=== PATIENT | male | born 1980 | race Caucasian/White ===

== ENCOUNTER 2018-06-26 16:27 | Emergency (ER) | payer BC, OTHER ==
--- NOTE | 2018-06-26 16:44 | EDM.PDOC ---
ED HPI GENERAL MEDICAL PROBLEM - General Chief Complaint: Cardiovascular Problem Stated Complaint: FAST HEART RATE Time Seen by Provider: 06/26/18 16:38 Source of Information: Reports: Patient History Limitations: Reports: No Limitations - History of Present Illness INITIAL COMMENTS - FREE TEXT/NARRATIVE: 38-year-old male presents to the ED with chief complaint of palpitations or fluttering feeling in his chest. Associated mild shortness of breath on exertion and occasional dizziness. Eyes cough or sputum production. His significant other indicates that his lower legs become much more edematous over the last week or so. Patient denies any chest pain. Of note the patient is morbidly obese. Unclear whether he has sleep apnea syndrome. He doesn't think that he has diabetes. He states he's on 2 kinds of blood pressure medicines. He states he's noticed a fluttering feeling in his chest off and on for the last week or more. Onset: Unknown/Unsure (He's felt palpitations off and on for at least a week.) Onset Date: 06/20/18 Duration: Day(s):, Intermittent, Waxing/Waning Location: Reports: Chest (Palpitations.), Other (Increased swelling of both lower extremities) Quality: Reports: Other Severity: Moderate (Fluttering feeling in his chest.) Improves with: Reports: None Worsens with: Reports: None Context: Denies: Activity, Exercise, Lifting, Sick Contact, Trauma, Other Associated Symptoms: Reports: Shortness of Breath. 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 (see below) - Related Data Allergies Allergy/AdvReac Type Severity Reaction Status Date / Time No Known Allergies Allergy Verified 06/26/18 16:36 Home Meds: Home Meds Furosemide [Lasix] 40 mg PO DAILY #30 tablet 06/26/18 [Rx] Meloxicam 15 mg PO DAILY 06/26/18 [History] Metoprolol Succinate 50 mg PO DAILY 06/26/18 [History] Past Medical History Cardiovascular History: Reports: Hypertension Endocrine/Metabolic History: Reports: Obesity/BMI 30+ Social & Family History - Living Situation & Occupation Living situation: Reports: Occupation: Employed ED ROS GENERAL - Review of Systems Review Of Systems: See Below Constitutional: Reports: Malaise, Fatigue. Denies: Fever, Chills HEENT: Reports: No Symptoms Respiratory: Reports: Shortness of Breath Cardiovascular: Reports: Blood Pressure Problem, Edema (Increased edema lower extremities for the last week according to his significant other), Palpitations. Denies: Chest Pain, Claudication, Lightheadedness, Orthopnea ( Chronic hypertension) Endocrine: Reports: Fatigue GI/Abdominal: Denies: Abdominal Pain, Constipation, Diarrhea, Decreased Appetite : Reports: Frequency Musculoskeletal: Reports: Back Pain, Joint Pain (Knees hips) Skin: Reports: No Symptoms Neurological: Reports: No Symptoms Psychiatric: Reports: No Symptoms Hematologic/Lymphatic: Reports: No Symptoms Immunologic: Reports: No Symptoms ED EXAM, GENERAL - Physical Exam Exam: See Below Exam Limited By: No Limitations General Appearance: Alert, WD/WN, No Apparent Distress, Other (Vital signs show BP 136/67 respiratory rate of 24/m pulse ox 100% on room air temperature is 36.8. Under shows sinus rhythm at 87/m) Eye Exam: Bilateral Eye: Other (Patient has strabismus.) Respiratory/Chest: No Accessory Muscle Use, Respiratory Distress, Decreased Breath Sounds (Breath sounds are mildly diminished to both lung bases due to his girth.). No: Rales, Rhonchi, Wheezing Cardiovascular: Regular Rate, Rhythm. No: Normal Peripheral Pulses, No Edema, No Gallop (Occasional ectopic beat), JVD, Bradycardia, Tachycardia, Systolic Murmur Peripheral Pulses: 1+: Posterior Tibial (L) (Pulses are barely palpable in his feet due to edema of the lower extremities), Posterior Tibial (R), Dorsalis Pedis (L), Dorsalis Pedis (R) GI/Abdominal: Normal Bowel Sounds, Soft, Non-Tender, Other (Morbidly obese. Abdominal girth limits ability to palpate any solid organs. Small umbilical hernia which is easily reducible.) Extremities: Pedal Edema, Other Neurological: Alert, Oriented, CN II-XII Intact (No venous stasis ulcers.), Normal Cognition, No Motor/Sensory Deficits Psychiatric: Normal Affect, Normal Mood Skin Exam: Warm, Dry, Intact, Normal Color, No Rash EKG INTERPRETATION EKG Date: 06/26/18 Time: 16:50 Rhythm: NSR Rate (Beats/Min): 85 [place]: LAD-Left [place] Deviation (-12) P-Wave: Present QRS: Other (Decreased voltage precordial leads. Initial poor R-wave progression. Left ventricular hypertrophy pattern there is an incomplete right bundle branch block pattern.) ST-T: Other (Diffuse early repolarization pattern.) QT: Normal EKG Interpretation Comments: Abnormal ECG Course - Vital Signs Last Recorded V/S: Last Vital Signs Temp 36.8 C 06/26/18 16:36 Pulse 89 06/26/18 16:36 Resp 24 H 06/26/18 16:36 BP 136/67 06/26/18 16:36 Pulse Ox 100 06/26/18 16:36 - Orders/Labs/Meds Orders: Active Orders 24 hr Category Date Time Status EKG Documentation Completion [RC] STAT Care 06/26/18 16:39 Active Chest 1V Frontal [CR] Stat Exams 06/26/18 16:39 Taken Labs: Laboratory Tests 06/26/18 06/26/18 06/26/18 Range/Units 17:03 17:03 17:03 WBC 9.50 H (4.23-9.07) K/mm3 RBC 4.63 (4.63-6.08) M/mm3 Hgb 14.0 (13.7-17.5) gm/L Hct 42.9 (40.1-51.0) % MCV 92.7 H (79.0-92.2) fl MCH 30.2 (25.7-32.2) pg MCHC 32.6 (32.2-35.5) g/dl RDW Std Deviation 43.1 (35.1-43.9) fL Plt Count 319 (163-337) K/mm3 MPV 10.2 (9.4-12.3) fl Neutrophils % (Manual) 65 H (40-60) % Band Neutrophils % 0 (0-10) % Lymphocytes % (Manual) 24 (20-40) % Atypical Lymphs % 0 % Monocytes % (Manual) 4 (2-10) % Eosinophils % (Manual) 6 (0.8-7.0) % Basophils % (Manual) 1 (0.2-1.2) Platelet Estimate Adequate Plt Morphology Comment Normal RBC Morph Comment Normal PT 10.8 (9.5-12.1) SECONDS INR 0.99 D-Dimer, Quantitative 0.45 (0.19-0.50) mg/L Sodium 141 (136-145) mEq/L Potassium 3.7 (3.5-5.1) mEq/L Chloride 102 (98-107) mEq/L Carbon Dioxide 31 (21-32) mEq/L Anion Gap 11.7 (5-15) BUN 15 (7-18) mg/dL Creatinine 1.2 (0.7-1.3) mg/dL Est Cr Clr Drug Dosing 84.49 mL/min Estimated GFR (MDRD) > 60 (>60) mL/min BUN/Creatinine Ratio 12.5 L (14-18) Glucose 86 (74-106) mg/dL Hemoglobin A1c (4.50-6.20) % Calcium 9.1 (8.5-10.1) mg/dL Magnesium 1.8 (1.8-2.4) mg/dl Total Bilirubin 0.1 L (0.2-1.0) mg/dL AST 24 (15-37) U/L ALT 35 (16-63) U/L Alkaline Phosphatase 58 (46-116) U/L CK-MB (CK-2) 5.2 H (0-3.6) ng/ml Troponin I < 0.017 (0.00-0.056) ng/mL C-Reactive Protein 1.0 (<1.0) mg/dL NT-Pro-B Natriuret Pep (0-125) pg/mL Total Protein 7.8 (6.4-8.2) g/dl Albumin 3.4 (3.4-5.0) g/dl Globulin 4.4 gm/dL Albumin/Globulin Ratio 0.8 L (1-2) TSH 3rd Generation 0.940 (0.358-3.74) uIU/mL 06/26/18 06/26/18 Range/Units 17:03 17:03 WBC (4.23-9.07) K/mm3 RBC (4.63-6.08) M/mm3 Hgb (13.7-17.5) gm/L Hct (40.1-51.0) % MCV (79.0-92.2) fl MCH (25.7-32.2) pg MCHC (32.2-35.5) g/dl RDW Std Deviation (35.1-43.9) fL Plt Count (163-337) K/mm3 MPV (9.4-12.3) fl Neutrophils % (Manual) (40-60) % Band Neutrophils % (0-10) % Lymphocytes % (Manual) (20-40) % Atypical Lymphs % % Monocytes % (Manual) (2-10) % Eosinophils % (Manual) (0.8-7.0) % Basophils % (Manual) (0.2-1.2) Platelet Estimate Plt Morphology Comment RBC Morph Comment PT (9.5-12.1) SECONDS INR D-Dimer, Quantitative (0.19-0.50) mg/L Sodium (136-145) mEq/L Potassium (3.5-5.1) mEq/L Chloride (98-107) mEq/L Carbon Dioxide (21-32) mEq/L Anion Gap (5-15) BUN (7-18) mg/dL Creatinine (0.7-1.3) mg/dL Est Cr Clr Drug Dosing mL/min Estimated GFR (MDRD) (>60) mL/min BUN/Creatinine Ratio (14-18) Glucose (74-106) mg/dL Hemoglobin A1c 6.00 (4.50-6.20) % Calcium (8.5-10.1) mg/dL Magnesium (1.8-2.4) mg/dl Total Bilirubin (0.2-1.0) mg/dL AST (15-37) U/L ALT (16-63) U/L Alkaline Phosphatase (46-116) U/L CK-MB (CK-2) (0-3.6) ng/ml Troponin I (0.00-0.056) ng/mL C-Reactive Protein (<1.0) mg/dL NT-Pro-B Natriuret Pep 123 (0-125) pg/mL Total Protein (6.4-8.2) g/dl Albumin (3.4-5.0) g/dl Globulin gm/dL Albumin/Globulin Ratio (1-2) TSH 3rd Generation (0.358-3.74) uIU/mL - Radiology Interpretation Free Text/Narrative:: 38-year-old male presents to the ED with a feeling of fluttering in his chest or palpitations. Associated mild shortness of breath and perhaps occasional dizziness. He states he's felt palpitations off and on for the last week. Heart rate in the ED however is in the 80s and it's been sinus rhythm. I thought initially he did have a few ectopic beats but none are visualized at rest. Sats are 100% on room air. Blood pressure is 136/67 using the very large cuff. ECG reveals decreased voltage in the precordial leads. Initial poor R-wave progression. Left ventricular hypertrophy pattern. Left axis deviation of -12. No signs of ischemia and abnormal ECG. Patient may be suffering mild congestive failure. He certainly has venous insufficiency with edema up to his knees bilaterally. He is morbidly obese with a BMI greater than 60. He's never been diagnosed with diabetes. - Re-Assessments/Exams Free Text/Narrative Re-Assessment/Exam: 06/26/18 18:00: Chest x-ray done portably suggests mild to moderate cardiomegaly. Diffuse vascular congestion pattern. However the film does appear to be magnified. 06/26/18 18:19 Labs are back. Total white count is 9.50 with 65% neutrophils and no band cells. Hemoglobin is 14.0 with hematocrit of 42.9. MCV is minimally elevated at 19.7. Bili count 319,000. PT is 10.8 with an INR of 0.99. D-dimer is 0.45 normal.. Sodium 141 with potassium of 3.7. Toward 102 with a bicarbonate of 31. Anion gap is 11.7. BUN is 15 with a creatinine of 1.2. GFR is greater than 60. Glucose is 86. Hemoglobin A1c is 6.00. Calcium is 9.1. Magnesium is 1.8. Liver function is completely normal. CK-MB fraction is 5.2. Slightly elevated troponin I however is less than 0.017. C-reactive protein 1.0. BNP 123. Total protein is 7.8. TSH is elevated at 0.940. Labs of essentially come back normal. He is not showing any signs of arrhythmia since being in the ED. He remains in the mid 80s sinus rhythm with sats of 99% on room air. He has venous insufficiency with marked increased dependent edema. I' m going to change his diuretic to Lasix 40 mg daily and discontinue the hydrochlorothiazide. I will have him be rechecked in the clinic in 2 weeks' time to check on his serum potassium. His potassium may come up after he is off the hydrochlorothiazide or remain about the same on suresh dose of Lasix. Departure - Departure Time of Disposition: 18:29 Disposition: Home, Self-Care 01 Condition: Fair Clinical Impression: Dependent edema, Venous insufficiency of both lower extremities Prescriptions: Furosemide [Lasix] 40 mg PO DAILY #30 tablet Instructions: Edema, [place] Referrals: Mary Montiel NP [Primary Care Provider] - Forms: ED Department Discharge Additional Instructions: Evaluation the emergency room today in regards to increased fluid retention in your lower extremities and feeling of palpitations or fluttering in your chest. You were monitored in the ED for an hour and a half and showed no signs of arrhythmias of your heart. I know flutters or extra beats or skips were identified. Sometimes the diaphragm can flutter and give you a fluttering feeling in your chest. All of the rest of your lab tests proved to be normal including thyroid function and no evidence of diabetes. Electrolytes were all normal including potassium at 3.7. Therefore increased swelling in your lower extremities is due to venous insufficiency which means that the one-way valves and the veins are hitting out secondary to carrying the weight you are. Treatment will be a change in your water medication. You are to stop the hydrochlorothiazide medication. Replace it with Lasix 40 mg once daily every morning. Urine to see Mary Montiel for refills of your medications and your serum potassium should be checked. - My Orders Last 24 Hours: My Active Orders 06/26/18 16:39 EKG Documentation Completion [RC] STAT Chest 1V Frontal [CR] Stat - Assessment/Plan Last 24 Hours: My Active Orders 06/26/18 16:39 EKG Documentation Completion [RC] STAT Chest 1V Frontal [CR] Stat
--- NOTE | 2018-06-27 06:04 | CR ---
Chest: Portable view of the chest was obtained. Comparison: No prior chest x-ray. Heart size and mediastinum are within normal limits for portable technique. Lungs are clear with no acute parenchymal change. Bony structures are grossly intact. Impression: 1. Nothing acute is seen on portable chest x-ray. Diagnostic code #1
== END 2018-06-26 18:45 | disposition home or self-care (01) ==
LOC: JD.ED 16:27
DX: I87.2 Venous insufficiency (chronic) (peripheral) (principal); I10 Essential (primary) hypertension; E66.9 Obesity, unspecified
CPT/HCPCS: 36415; 71045; 71045-26; 80053; 82553; 83036; 83735; 83880; 84443; 84484; 85007; 85027; 85379; 85610; 86140; 93005; 93010; 99284; 99285-25

== ENCOUNTER 2019-12-05 08:15 | Emergency (ER) | payer OTHER ==
[2019-12-05] MEDS ORDERED: Fluorescein 1 MG Ophth Strip EYEBOTH ONE (08:36)
--- NOTE | 2019-12-05 09:01 | EDM.PDOC ---
ED HPI GENERAL MEDICAL PROBLEM - General Chief Complaint: Eye Problems Stated Complaint: EYE REDNESS Time Seen by Provider: 12/05/19 08:36 Source of Information: Reports: Patient History Limitations: Reports: No Limitations - History of Present Illness INITIAL COMMENTS - FREE TEXT/NARRATIVE: The patient presents with right eye redness and pain. This started yesterday. 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 He has no blurred vision or double vision. Onset: Gradual Duration: Day(s): (Yesterday) Location: Reports: Other ([facility] eye) Quality: Reports: Ache Severity: Moderate Improves with: Reports: None Worsens with: Reports: None Associated Symptoms: Reports: No Other Symptoms Right Eye Pain Score (Numeric/FACES): 6 - Related Data Allergies Allergy/AdvReac Type Severity Reaction Status Date / Time lisinopril Allergy Severe Cough Verified 12/05/19 08:32 Home Meds: Home Meds Furosemide [Lasix] 40 mg PO DAILY #30 tablet 06/26/18 [Rx] Metoprolol Succinate 50 mg PO DAILY 06/26/18 [History] Ciprofloxacin [Ciprofloxacin 0.3% Oph Soln] 1 drop EYERT Q4HR #1 bottle 12/05/19 [Rx] Past Medical History Cardiovascular History: Reports: Hypertension Musculoskeletal History: Reports: Other (See Below) Other Musculoskeletal History: chronic pain Endocrine/Metabolic History: Reports: Obesity/BMI 30+ - Past Surgical History GI Surgical History: Reports: Colonoscopy Other Musculoskeletal Surgeries/Procedures:: Hand surgery Social & Family History - Tobacco Use Smoking Status *Q: Never Smoker - Caffeine Use Caffeine Use: Reports: Soda - Recreational Drug Use Recreational Drug Use: No - Living Situation & Occupation Living situation: Reports: Occupation: Employed ED ROS GENERAL - Review of Systems Review Of Systems: See Below Constitutional: Reports: No Symptoms HEENT: Reports: Eye Pain Respiratory: Reports: No Symptoms Cardiovascular: Reports: No Symptoms Endocrine: Reports: No Symptoms GI/Abdominal: Reports: No Symptoms : Reports: No Symptoms Musculoskeletal: Reports: No Symptoms ED EXAM GENERAL W FULL EYE - Physical Exam Exam: See Below Exam Limited By: No Limitations General Appearance: Alert, No Apparent Distress Eye Exam: Right Eye: Conjunctival Injection, Corneal Abrasion (Small punctate abrasions), Foreign Body Visual Acuity (R) 20/: 25 Visual Acuity (L) 20/: 25 With Correction: No Eyelids: Right: Normal Appearance, Lid Everted for Exam Conjunctiva & Sclera: Right: Injected Cornea Exam: Right: Corneal Abrasion (Small multiple abrasions), Foreign Body, Examined with Flourescein Extraocular Movements: Bilateral: Intact Pupillary Reaction: Bilateral: Brisk Anterior Chamber: Right: Normal Appearance ED EYE w/ Add Procedure - Eye Procedure Alcaine Drops Administered: Yes (Proparicaine) Eye FB Removal: Other (Partial removal with eye spud) Eye Irrigated w/ Saline (ccs): 5 Course - Vital Signs Last Recorded V/S: Last Vital Signs Temp 97.2 F 12/05/19 08:28 Pulse 78 12/05/19 08:28 Resp 16 12/05/19 08:28 BP 117/55 L 12/05/19 08:28 Pulse Ox 98 12/05/19 08:28 - Orders/Labs/Meds Meds: Medications Discontinued Medications Generic Name Dose Route Start Last Admin Trade Name Freq PRN Reason Stop Dose Admin Fluorescein Sodium 1 mg 12/05/19 08:36 Ful-Alba EYEBOTH 12/05/19 08:37 ONETIME ONE - Re-Assessments/Exams Free Text/Narrative Re-Assessment/Exam: 12/05/19 09:00 The patient has welder helper's burn to right eye and also there was a metal FB. I did remove some of the FB. It appears it may have been in there awhile. I will refer him to optometry. Departure - Departure Time of Disposition: 09:00 Disposition: Home, Self-Care 01 Condition: Good Clinical Impression: Welders' keratitis of right eye Foreign body of right eye Qualifiers: Encounter type: initial encounter Qualified Code(s): T15.91XA - Foreign body on external eye, part unspecified, right eye, initial encounter - Discharge Information *PRESCRIPTION DRUG MONITORING PROGRAM REVIEWED*: Not Applicable *COPY OF PRESCRIPTION DRUG MONITORING REPORT IN PATIENT MARY: Not Applicable Prescriptions: Ciprofloxacin [Ciprofloxacin 0.3% Ophth Soln] 1 drop EYERT Q4HR #1 bottle Referrals: Mary Montiel NP [Primary Care Provider] - Additional Instructions: Take tylenol or motrin for pain. Use the cipro drops 1 drop in the right eye every 4 hours while awake for 1 week. There is still a little metal in your cornea. Follow up with an tape coater within a week. Please return if you are worse. Sepsis Event Note (ED) - Evaluation Sepsis Screening Result: No Definite Risk - Focused Exam Vital Signs: Vital Signs Temp Pulse Resp BP Pulse Ox 12/05/19 08:28 97.2 F 78 16 117/55 L 98
== END 2019-12-05 09:20 | disposition home or self-care (01) ==
LOC: JD.ED 08:15
DX: T15.91XA Foreign body on external eye, part unspecified, right eye, initial encounter (principal); H16.131 Photokeratitis, right eye; I10 Essential (primary) hypertension; E66.9 Obesity, unspecified; Z68.43 Body mass index [BMI] 50.0-59.9, adult; Z88.8 Allergy status to other drugs, medicaments and biological substances; Z79.899 Other long term (current) drug therapy; W89.8XXA Exposure to other man-made visible and ultraviolet light, initial encounter
CPT/HCPCS: 65205; 99282; 99283

== ENCOUNTER 2023-07-22 07:46 | Emergency (ER) | payer BC, OTHER ==
[2023-07-22] MEDS ORDERED: Aspirin 81 MG Tab.Chew PO ONE (08:08)
[2023-07-22] MEDS ORDERED: Sodium Chloride 0.9% 10 ML Syringe FLUSH PRN (08:08)
[2023-07-22 08:33] LABS: BASOPHILS PERCENT AUTO 0.4 % (0.0-1.0); EOSINOPHILS ABSOLUTE AUTO 0.3 K/mm3 (0.0-0.4); EOSINOPHILS PERCENT AUTO 4.2 % (0.0-6.0); HEMATOCRIT 40.8 % (42.0-52.0); HEMOGLOBIN 13.4 gm/dl (14.0-18.0); IMMATURE GRAN ABSOLUTE AUTO 0.03 K/mm3 (0.00-0.05); IMMATURE GRAN PERCENT AUTO 0.4 % (0.0-0.4); LYMPHOCYTES ABSOLUTE AUTO 1.8 K/mm3 (1.0-4.8); MEAN CORPUSCULAR HEMOGLOBIN 30.5 pg (28.0-32.0); MEAN CORPUSCULAR HGB CONC 32.8 g/dl (32.0-36.0); MEAN CORPUSCULAR VOLUME 92.7 fl (83.0-99.0); MEAN PLATELET VOLUME 10.2 fl (9.4-12.4); MONOCYTES ABSOLUTE AUTO 0.5 K/mm3 (0.0-0.8); MONOCYTES PERCENT AUTO 5.5 % (0.0-8.0); NEUTROPHILS ABSOLUTE AUTO 5.5 K/mm3 (1.8-7.7); NEUTROPHILS PERCENT AUTO 67.5 % (41.0-71.0); PLATELET COUNT,PLT 255 K/mm3 (150-400); WHITE BLOOD CELL COUNT,WBC 8.14 K/mm3 (3.9-11.3)
[2023-07-22 08:51] LABS: A/G RATIO 0.7 (1-2); ANION GAP 11.8 (5-15); BILIRUBIN TOTAL 0.3 mg/dL (0.2-1.0); BUN/CREATININE RATIO 8.2 (14-18); CALCIUM 8.7 mg/dL (8.5-10.1); CREATININE 1.1 mg/dL (0.7-1.3); EST CRCL DRUG DOSING (CG) 87.56 mL/min; POTASSIUM,K 3.8 mEq/L (3.5-5.1); PROTEIN TOTAL,TP 7.4 g/dl (6.4-8.2)
[2023-07-22 09:45] LABS: HEMOGLOBIN A1C 8.7 %
== END 2023-07-22 10:32 | disposition home or self-care (01) ==
LOC: JD.ED 07:46
DX: R07.89 Other chest pain (principal); E11.9 Type 2 diabetes mellitus without complications; I10 Essential (primary) hypertension; F17.210 Nicotine dependence, cigarettes, uncomplicated; Z88.8 Allergy status to other drugs, medicaments and biological substances; Z79.84 Long term (current) use of oral hypoglycemic drugs; Z79.899 Other long term (current) drug therapy
CPT/HCPCS: 36415; 71045; 80053; 83036; 84484; 85025; 93005; 99285; A9270; J3490

== ENCOUNTER 2024-09-09 18:31 | Emergency (ER) | payer BC ==
[2024-09-09 19:16] LABS: BASOPHILS PERCENT AUTO 0.2 % (0.0-1.0); EOSINOPHILS ABSOLUTE AUTO 0.2 K/mm3 (0.0-0.4); EOSINOPHILS PERCENT AUTO 1.5 % (0.0-6.0); HEMATOCRIT 39.9 % (42.0-52.0); HEMOGLOBIN 13.1 gm/dl (14.0-18.0); IMMATURE GRAN ABSOLUTE AUTO 0.09 K/mm3 (0.00-0.05); IMMATURE GRAN PERCENT AUTO 0.7 % (0.0-0.4); LYMPHOCYTES ABSOLUTE AUTO 2.1 K/mm3 (1.0-4.8); LYMPHOCYTES PERCENT AUTO 15.6 % (24.0-44.0); MEAN CORPUSCULAR HEMOGLOBIN 31.2 pg (28.0-32.0); MEAN CORPUSCULAR HGB CONC 32.8 g/dl (32.0-36.0); MEAN PLATELET VOLUME 10.3 fl (9.4-12.4); MONOCYTES ABSOLUTE AUTO 0.7 K/mm3 (0.0-0.8); MONOCYTES PERCENT AUTO 5.4 % (0.0-8.0); NEUTROPHILS ABSOLUTE AUTO 10.3 K/mm3 (1.8-7.7); NEUTROPHILS PERCENT AUTO 76.6 % (41.0-71.0); PLATELET COUNT,PLT 361 K/mm3 (150-400); WHITE BLOOD CELL COUNT,WBC 13.42 K/mm3 (3.9-11.3)
[2024-09-09 19:24] LABS: INR 1.24
[2024-09-09 19:31] LABS: A/G RATIO 0.6 (1-2); ALBUMIN 2.8 g/dl (3.4-5.0); ANION GAP 10.5 (5-15); BILIRUBIN TOTAL 0.3 mg/dL (0.2-1.0); BUN/CREATININE RATIO 13.6 (14-18); CALCIUM 8.6 mg/dL (8.5-10.1); CREATININE 1.1 mg/dL (0.7-1.3); EST CRCL DRUG DOSING (CG) 89.37 mL/min; POTASSIUM,K 3.5 mEq/L (3.5-5.1); PROTEIN TOTAL,TP 7.5 g/dl (6.4-8.2)
[2024-09-09] MEDS: Iopamidol 755 Mg/ML 100 ML Bottle IVPUSH ONE (20:15)
[2024-09-09] MEDS: Sodium Chloride 0.9% 10 ML Syringe FLUSH PRN ×2 (20:15→20:47)
[2024-09-09] MEDS: Sodium Chloride 0.9% 45 ML IV SCH (20:15)
[2024-09-09] MEDS: Sodium Chloride 0.9% 500 ML IV ONE (20:47)
== END 2024-09-09 23:21 | disposition home or self-care (01) ==
LOC: JD.ED 18:31
DX: R07.9 Chest pain, unspecified (principal); M25.512 Pain in left shoulder; E66.9 Obesity, unspecified; Z79.84 Long term (current) use of oral hypoglycemic drugs; Z79.899 Other long term (current) drug therapy; Z88.8 Allergy status to other drugs, medicaments and biological substances; Z68.42 Body mass index [BMI] 45.0-49.9, adult
CPT/HCPCS: 36415; 71045; 71275; 73030; 80053; 84484; 85025; 85610; 93005; 96360; 99285; J7030; Q9967

== ENCOUNTER 2024-12-19 09:17 | Emergency (ER) | payer BC ==
[2024-12-19] MEDS ORDERED: Sodium Chloride 0.9% 10 ML Syringe FLUSH PRN (09:31)
[2024-12-19 09:41] LABS: BASOPHILS ABSOLUTE AUTO 0.1 K/mm3 (0.0-0.2); BASOPHILS PERCENT AUTO 0.3 % (0.0-1.0); EOSINOPHILS ABSOLUTE AUTO 0.0 K/mm3 (0.0-0.4); EOSINOPHILS PERCENT AUTO 0.3 % (0.0-6.0); IMMATURE GRAN ABSOLUTE AUTO 0.06 K/mm3 (0.00-0.05); IMMATURE GRAN PERCENT AUTO 0.4 % (0.0-0.4); LYMPHOCYTES ABSOLUTE AUTO 1.4 K/mm3 (1.0-4.8); LYMPHOCYTES PERCENT AUTO 9.1 % (24.0-44.0); MEAN PLATELET VOLUME 9.7 fl (9.4-12.4); MONOCYTES ABSOLUTE AUTO 1.2 K/mm3 (0.0-0.8); MONOCYTES PERCENT AUTO 7.7 % (0.0-8.0); NEUTROPHILS ABSOLUTE AUTO 12.8 K/mm3 (1.8-7.7); NEUTROPHILS PERCENT AUTO 82.2 % (41.0-71.0); NRBC ABSOLUTE 0.00 (0.00-0.02); NRBC PERCENT 0.0 % (0.0-0.2); RED BLOOD CELL COUNT 4.89 M/mm3 (4.52-5.90); WHITE BLOOD CELL COUNT,WBC 15.58 K/mm3 (3.9-11.3)
[2024-12-19 09:50] LABS: PLATELET COUNT,PLT 284 K/mm3 (150-400)
[2024-12-19 09:59] LABS: A/G RATIO 0.6 (1-2); ALANINE AMINOTRANSFERASE,ALT 19.0 U/L (16-63); ASPARTATE AMNIOTRANSFERASE,AST 14.0 U/L (15-37); BILIRUBIN TOTAL 1.5 mg/dL (0.2-1.0); BLOOD UREA NITROGEN,BUN 14.0 mg/dL (7-18); CARBON DIOXIDE,CO2 27.0 mEq/L (21-32); CHLORIDE,CL 97.0 mEq/L (98-107); CREATININE 1.2 mg/dL (0.7-1.3); EST CRCL DRUG DOSING (CG) 79.42 mL/min; ESTIMATED GFR 76.0 mL/min (>60); GLUCOSE RANDOM 91.0 mg/dL (70-99); PHOSPHORUS 2.5 mg/dL (2.6-4.7); POTASSIUM,K 4.2 mEq/L (3.5-5.1); PROTEIN TOTAL,TP 8.5 g/dl (6.4-8.2); SODIUM,NA 134.0 mEq/L (136-145); TROPONIN I HIGH SENSITIVITY 13.0 pg/mL (<=76)
[2024-12-19] MEDS: Iopamidol 755 Mg/ML 100 ML Bottle IVPUSH ONE (13:34)
[2024-12-19] MEDS: Sodium Chloride 0.9% 10 ML Syringe FLUSH ONE (13:34)
[2024-12-19 14:50] LABS: INR 2.29
[2024-12-19 15:39] LABS: APPEARANCE,URINE CLEAR (Clear); GLUCOSE,URINE NEGATIVE (Negative); OCCULT BLOOD,URINE 2+ (Negative)
[2024-12-19] MEDS: VANCOmycin 2 GM/400 ML 2 GM in Premix Bag 1 BAG IV ONE (16:29)
== END 2024-12-19 18:30 ==
LOC: JD.ED 09:17
DX: I31.39 Other pericardial effusion (noninflammatory) (principal); I10 Essential (primary) hypertension; E66.9 Obesity, unspecified; Z88.8 Allergy status to other drugs, medicaments and biological substances; Z79.02 Long term (current) use of antithrombotics/antiplatelets; Z68.42 Body mass index [BMI] 45.0-49.9, adult
CPT/HCPCS: 36415; 71045; 71275; 80053; 81001; 83605; 83735; 83880; 84100; 84484; 85025; 85610; 87040; 93005; 96361; 96365; 96366; 96375; 96376; 99285; A9270; J0696; J3372; J7030; Q9967; 93010